=== PATIENT | male | born 1985 | race African-American/Black ===

== ENCOUNTER 2018-04-17 19:50 | Emergency (ER) | payer OTHER ==
[~2018-04-17] VITALS: Ht 175.3 cm; Wt 70.4 kg
[2018-04-17 21:43] LABS: HEMATOCRIT 43.3 % (38.0-50.0); HEMOGLOBIN 15.1 G/DL (12.5-16.6); MCH 32.4 PG (29.0-34.0); MCHC 34.9 G/DL (30.0-36.0); MCV 92.9 FL (86-99); PLATELET COUNT 207 K/uL (156-360); RBC DIS.WIDTH-CV 11.4 % (11.8-14.6); RBC DIS.WIDTH-SD 38.6 % (39-53); RED BLOOD COUNT 4.66 M/uL (4.00-5.50); WHITE BLOOD COUNT 6.1 K/uL (4.1-10.2)
[2018-04-17 21:58] LABS: CHLORIDE 104 mEq/L (99-109); SODIUM 140 mEq/L (136-147)
[2018-04-17 21:59] LABS: GLUCOSE 85 mg/dL (70-99)
[2018-04-17 22:03] LABS: CREATININE 1.2 mg/dL (0.6-1.3); GFR ESTIMATE (CALCULATED) > 59 mL/min/ (58.99-99999); SERUM ETHYL ALCOHOL < 10 mg/dL
[2018-04-17 22:20] LABS: UREA NITROGEN (BUN) 13 mg/dL (9-23)
[2018-04-17 22:21] LABS: SALICYLATE < 5.0 MG/DL (15-30)
[2018-04-17 22:22] LABS: ACETAMINOPHEN (TYLENOL) < 10 mcg/mL (10-30)
[2018-04-17] MEDS ORDERED: ZYRTEC10 M2 PO (23:22)
[2018-04-17] MEDS ORDERED: FLONASE16 G1 BOTH NARES (23:22)
[2018-04-17 23:34] VITALS: BP 124/79
== END 2018-04-17 23:34 | disposition home or self-care (01) ==
LOC: EME 19:50
PROVIDERS: Nurse Practitioner Family
DX: J34.89 Other specified disorders of nose and nasal sinuses (principal); R05 Cough; R53.83 Other fatigue; G47.00 Insomnia, unspecified; R51 Headache; R06.02 Shortness of breath; R63.4 Abnormal weight loss; Z68.22 Body mass index [BMI] 22.0-22.9, adult; Z91.14 Patient's other noncompliance with medication regimen
CPT/HCPCS: 71046; 80048; 81003; 85027; 99281; 99284; G0480